=== PATIENT | female | born 1940 | race Native Hawaiian/Other Pacific Islander ===

== ENCOUNTER 2017-05-28 10:39 | Outpatient (CLI) | payer OTHER ==
[~2017-05-28 10:39] MED LIST: AMITRIP PO; ASPIRIN81 M1 PO; CDP PO; LISI5TAB10 PO; NEXIUM40 M1 PO; TOPAMAX50 MG PO
== END 2017-05-28 11:40 | disposition home or self-care (01) ==
LOC: MAMMO 10:39
DX: Z85.3 Personal history of malignant neoplasm of breast (principal)
CPT/HCPCS: G0206-TC

== ENCOUNTER 2018-01-24 10:04 | Outpatient (CLI) | payer OTHER ==
[2018-01-24 10:26] LABS: PLATELET COUNT 230 K/uL (152-353)
[2018-01-24 10:41] LABS: POTASSIUM 3.8 mmol/L (3.6-5.2)
== END 2018-01-24 11:10 | disposition home or self-care (01) ==
LOC: LABW 10:04
PROVIDERS: Physician Assistant Medical
DX: E11.22 Type 2 diabetes mellitus with diabetic chronic kidney disease (principal); I12.9 Hypertensive chronic kidney disease with stage 1 through stage 4 chronic kidney disease, or unspecified chronic kidney disease; N18.3 Chronic kidney disease, stage 3 (moderate); E55.9 Vitamin D deficiency, unspecified; E78.1 Pure hyperglyceridemia
CPT/HCPCS: 36415; 80053; 80061; 81000; 82306; 82550; 83036; 83735; 83970; 84100; 85027

== ENCOUNTER 2018-06-10 09:20 | Outpatient (CLI) | payer OTHER ==
[2018-06-10 09:58] LABS: POTASSIUM 3.8 mmol/L (3.6-5.2)
== END 2018-06-10 19:54 | disposition home or self-care (01) ==
LOC: LABW 09:20
PROVIDERS: Physician Assistant Medical
DX: I12.9 Hypertensive chronic kidney disease with stage 1 through stage 4 chronic kidney disease, or unspecified chronic kidney disease (principal); N18.3 Chronic kidney disease, stage 3 (moderate); E78.3 Hyperchylomicronemia
CPT/HCPCS: 36415; 80053; 80061; 81000; 82306; 83735; 83970; 84100

== ENCOUNTER 2018-11-04 09:24 | Outpatient (CLI) | payer OTHER ==
[2018-11-04 10:03] LABS: POTASSIUM 3.9 mmol/L (3.6-5.2)
== END 2018-11-04 19:06 | disposition home or self-care (01) ==
LOC: LABW 09:24
PROVIDERS: Physician Assistant Medical
DX: I12.9 Hypertensive chronic kidney disease with stage 1 through stage 4 chronic kidney disease, or unspecified chronic kidney disease (principal); E78.3 Hyperchylomicronemia; N18.3 Chronic kidney disease, stage 3 (moderate); E11.22 Type 2 diabetes mellitus with diabetic chronic kidney disease
CPT/HCPCS: 36415; 80053; 80061; 81000; 82306; 83036; 83735; 83970; 84100

== ENCOUNTER 2019-03-10 11:16 | Outpatient (CLI) | payer OTHER ==
[2019-03-10 12:10] LABS: POTASSIUM 3.9 mmol/L (3.6-5.2)
[2019-03-10 12:17] LABS: PLATELET COUNT 203 K/uL (152-353)
== END 2019-03-10 19:38 | disposition home or self-care (01) ==
LOC: LABW 11:16
PROVIDERS: Physician Assistant Medical
DX: I12.9 Hypertensive chronic kidney disease with stage 1 through stage 4 chronic kidney disease, or unspecified chronic kidney disease (principal); N18.3 Chronic kidney disease, stage 3 (moderate); E11.22 Type 2 diabetes mellitus with diabetic chronic kidney disease; E78.3 Hyperchylomicronemia
CPT/HCPCS: 36415; 80053; 80061; 81000; 82306; 83036; 83735; 83970; 84100; 85027

== ENCOUNTER 2019-06-04 09:02 | Outpatient (CLI) | payer OTHER | END 2019-06-04 23:45 | disposition home or self-care (01) | LOC: MAMMO 09:02 | DX: Z12.31 Encounter for screening mammogram for malignant neoplasm of breast (principal); Z85.3 Personal history of malignant neoplasm of breast ==